=== PATIENT | female | born 1950 | race Caucasian/White ===

== ENCOUNTER → 2024-02-29 12:49 | Outpatient (REF) | payer MEDICARE, OTHER, SELFPAY | LOC: WDC 12:49 | PROVIDERS: ATTENDING PHYSICIAN Nurse Practitioner Adult Health; FAMILY PHYSICIAN Family Medicine | DX: N85.9 Noninflammatory disorder of uterus, unspecified (principal); Z12.31 Encounter for screening mammogram for malignant neoplasm of breast | CPT/HCPCS: 76830; 76856 ==

== ENCOUNTER → 2024-05-09 14:46 | Outpatient (REF) | payer MEDICARE, OTHER, SELFPAY | LOC: CLAB 14:46 | PROVIDERS: ATTENDING PHYSICIAN Obstetrics & Gynecology Gynecology | DX: R93.89 Abnormal findings on diagnostic imaging of other specified body structures (principal); N84.0 Polyp of corpus uteri | CPT/HCPCS: 88305 ==